=== PATIENT | male | born 2000 | race Caucasian/White ===

== ENCOUNTER 2022-08-15 02:41 | Observation (INO) ==
[2022-08-15 03:24] LABS: Bilirubin,Urine Negative (Negative); Blood,Urine Negative (Negative); Clarity,Urine Clear (Clear); Color,Urine Light-Yellow (Yellow); Glucose,Urine (UA) Normal (Normal); Ketones,Urine Negative (Negative); Leukocyte Esterase,Urine Negative (Negative); Nitrite,Urine Negative (Negative); PH,Urine 6.5 pH Units (5.0-8.0); Protein,Urine Trace mg/dL (Neg-Trace); Specific Gravity,Urine 1.012 (1.010-1.025); Urobilinogen,Urine Normal (Normal)
[2022-08-15 03:36] LABS: Amphetamine Screen,Urine Negative ng/mL (Cutoff=1000); Barbiturate Screen,Urine Negative ng/mL (Cutoff=200); Benzodiazepines Screen,Urine Negative ng/mL (Cutoff=200); Cannabinoid Screen,Urine Negative ng/mL (Cutoff = 50); Cocaine Screen,Urine Negative ng/mL (Cutoff= 300); Opiate Screen,Urine Negative ng/mL (Cutoff=300); Phencyclidine Screen,Urine Negative ng/mL (Cutoff=25)
[2022-08-15 03:45] LABS: Basophils # 0.1 K/mcL (0.0-0.2); Basophils % 0.6 %; Eosinophils # 0.1 K/mcL (0.0-0.6); Eosinophils % 0.5 %; Hemoglobin 16.6 g/dL (12.9-16.9); Immature Granulocytes % 0.6 % (0-4); Lymphocytes # 2.7 K/mcL (0.6-4.6); Mean Corpuscular HGB Conc 34.6 g/dL (31.6-35.5); Mean Corpuscular Hemoglobin 30.1 pg (28.0-33.3); Mean Platelet Volume 8.9 fL (9.4-12.4); Monocytes # 1.3 K/mcL (0.0-1.3); Monocytes % 10.3 %; Neutrophils # 8.2 K/mcL (1.6-8.9); Platelet Count 350 K/mcL (140-400); Red Blood Count 5.52 M/mcL (4.19-5.50); Red Cell Distribution Width 12.2 % (11.5-14.5); White Blood Count 12.4 K/mcL (4.3-11.1)
[2022-08-15 03:46] LABS: Acetaminophen < 10 mcg/mL (10-20); BUN/Creatinine Ratio 18 (6-26); Blood Urea Nitrogen 14 mg/dL (6-20); Calcium 9.3 mg/dL (8.6-10.3); Carbon Dioxide 19 mEq/L (23-29); Chloride 105 mEq/L (98-107); Ethanol 217 mg/dL (Less than 10); Glucose 102 mg/dL (70-105); Osmolality,Calculated 287 (280-300); Potassium 3.4 mEq/L (3.5-5.1); Salicylate < 2.5 mg/dL (15.0-30.0); Sodium 138 mEq/L (136-145)
[2022-08-15 04:07] LABS: Influenza A PCR Negative (Negative); Influenza B PCR Negative (Negative); Resp. Syncytial Virus PCR Negative (Negative); SARS-CoV-2 by PCR (In House) Negative (Negative)
[2022-08-15 14:16] LABS: Influenza A PCR Negative (Negative); Influenza B PCR Negative (Negative); Resp. Syncytial Virus PCR Negative (Negative); SARS-CoV-2 by PCR (In House) Negative (Negative)
[2022-08-15] MEDS ORDERED: traZODone 50 MG TABLET PO PRN (15:37)
[2022-08-15] MEDS ORDERED: *HR* LORazepam 2 MG/ML VIAL IM PRN (15:37)
[2022-08-15] MEDS ORDERED: *HR* LORazepam 1 MG TABLET PO PRN (15:37)
[2022-08-15] MEDS ORDERED: haloperidoL 5 MG TABLET PO PRN (15:37)
[2022-08-15] MEDS ORDERED: Acetaminophen 325 MG TABLET PO PRN (15:37)
[2022-08-15] MEDS ORDERED: Haloperidol Lactate 5 MG/ML VIAL IM PRN (15:37)
[2022-08-15] MEDS: Nicotine 21 MG PATCH.TD24 TD SCH (17:08)
[2022-08-15] MEDS: Doxycycline 100 MG CAPSULE PO SCH (20:17)
[2022-08-16] MEDS ORDERED: Mag Hydrox/Al Hydrox/Simeth 30 ML UDC PO PRN (08:04)
[2022-08-16] MEDS ORDERED: MOM Conc 10 ML UD.LIQ PO PRN (08:04)
[2022-08-16] MEDS: Doxycycline 100 MG CAPSULE PO SCH (10:04)
[2022-08-16] MEDS: Nicotine 21 MG PATCH.TD24 TD SCH (10:05)
[2022-08-16 10:14] VITALS: BP 115/82; PULSE 90; TEMP 97.8; O2SAT 100
== END 2022-08-16 10:41 | disposition home or self-care (01) ==
LOC: EMEROOARM 02:41 → 1ANU 14:20 → INTOOBSV 14:20 → 1ANU 15:50
PROVIDERS: ADMIT Psychiatry & Neurology Psychiatry; ATTEND Psychiatry & Neurology Psychiatry